=== PATIENT | male | born 1960 | race Caucasian/White ===

== ENCOUNTER 2017-03-04 07:38 | Observation (INO) | payer OTHER ==
[2017-03-04 08:21] LABS: #Basophils 0.1 thou/uL (0.0-0.2); #Eosinphils 0.4 thou/uL (0.0-0.7); #Lymphocytes 2.3 thou/uL (1.20-3.40); #Monocytes 0.5 thou/uL (0.11-0.59); #Neutrophils 3.6 thou/uL (1.40-6.50); %Basophils 1.2 % (0.0-1.0); %Eosinophils 5.7 % (0.0-10.0); %Lymphocytes 33.8 % (21.0-51.0); %Monocytes 6.9 % (0.0-10.0); Hematocrit 47.8 % (42.0-52.0); Mean Platelet Volume 7.4 fL (7.4-10.4); White Blood Cell (WBC) Count 6.8 thou/uL (4.8-10.8)
--- NOTE | 2017-03-04 08:29 | RAD ---
RADIOGRAPH CHEST 1 VIEW: HISTORY: 57-year-old male with acute chest pain. FINDINGS: There are no air space densities, pulmonary edema, pneumothorax, or cardiomegaly. The lateral costo phrenic angles are sharp. IMPRESSION: No acute cardiopulmonary findings. tripp POS: MARK
[2017-03-04] MEDS ORDERED: Nitroglycerin 0.4 MG TAB (25 Tab Bottle) ONE (08:32)
[2017-03-04 08:54] LABS: Troponin I Less than 0.010 ng/mL (< 0.028)
[2017-03-04 09:10] LABS: AST (SGOT) 27 U/L (5-34); Anion Gap 14 mmol/L (10-20); Protein, Total 7.3 g/dL (6.0-8.3)
[2017-03-04 09:11] LABS: ALT (SGPT) 35 U/L (8-55); Alkaline Phosphatase 60 U/L (40-150); BUN (Urea Nitrogen) 18 mg/dL (8.4-25.7); Bilirubin, Total 0.3 mg/dL (0.2-1.2); CK (CPK) 77 U/L (30-200); Calc. Creatinine Clearance 0 mL/min (70-130); Calcium 9.6 mg/dL (7.8-10.44); Carbon Dioxide 24 mmol/L (22-29); Chloride 99 mmol/L (98-107); Estimated GFR-MDRD 57; Globulin 3.9 g/dL (2.4-3.5); Lipase 41 U/L (8-78)
[2017-03-04] MEDS ORDERED: Ondansetron HCl/PF 4 MG/2 ML Vial ONE (09:11)
[2017-03-04] MEDS ORDERED: Mag-Al 1200 mg/1200 mg/30 ML UDCUP ONE (11:38)
[2017-03-04] MEDS ORDERED: Dextrose 5% in Water 1,000 ML IV PRN (12:32)
[2017-03-04] MEDS ORDERED: HumaLOG 300 UNITS/3 ML VIAL SC PRN ×2 (12:32)
[2017-03-04] MEDS ORDERED: Milk Of Magnesia 30 ML UDCUP PO PRN (12:32)
[2017-03-04] MEDS ORDERED: Acetaminophen 325 MG TAB PO PRN (12:32)
[2017-03-04] MEDS ORDERED: Loperamide HCl 2 MG CAP PO PRN (12:32)
[2017-03-04] MEDS ORDERED: Dextrose 50% Abboject 50 ML SYRINGE SLOW IVP PRN (12:32)
[2017-03-04] MEDS ORDERED: Zolpidem Tartrate 5 MG TAB PO PRN (12:32)
[2017-03-04] MEDS ORDERED: Diabetic Tussin 200 MG/10 ML UDCUP PO PRN (12:32)
[2017-03-04] MEDS ORDERED: Sodium Chloride 0.65% Nasal 44 ML BOT EA NARE PRN (12:32)
[2017-03-04] MEDS ORDERED: Ondansetron ODT 4 MG TAB PO PRN (12:32)
[2017-03-04] MEDS ORDERED: HYDROcodone/Acetaminophen 5/325 mg Tablet PO PRN (12:32)
[2017-03-04] MEDS ORDERED: Senokot 8.6 MG TAB PO PRN (12:32)
[2017-03-04] MEDS ORDERED: Mag-Al 1200 mg/1200 mg/30 ML UDCUP PO PRN (12:32)
[2017-03-04] MEDS ORDERED: Ondansetron HCl/PF 4 MG/2 ML Vial IVP PRN (12:32)
[2017-03-04 12:34] VITALS: BMI 38.5
[2017-03-04 13:41] LABS: Cholesterol 317 mg/dl (< 200 Desired)
[2017-03-04] MEDS ORDERED: Nitroglycerin 2% Ointment 1 INCH/1 GM Packet TOP SCH (14:00)
--- NOTE | 2017-03-04 15:23 | DIS ---
DATE OF ADMISSION: 03/04/2017 DATE OF DISCHARGE: 03/04/2017 DISCHARGE DISPOSITION: Home. PRIMARY DISCHARGE DIAGNOSIS: Chest pain, ruled out acute coronary syndrome. SECONDARY DISCHARGE DIAGNOSES: Diabetes type 2, hypertension, dyslipidemia, morbid obesity, hiatal hernia, anxiety, and depression. PRIMARY PROCEDURES/OPERATIONS: None. RADIOLOGICAL INVESTIGATION: Chest x-ray was normal. SIGNIFICANT LABORATORY DATA: Please see above. Triglyceride 418. Cholesterol 317. Lipase 41. DISCHARGE MEDICATIONS: Only new medication we added is Pepcid 20 mg p.o. b.i.d. Rest of medication s will be continued as per previous CONTRAINDICATION: None. CODE STATUS: FULL code. INPATIENT CONSULTANTS: None. ALLERGIES: No known drug allergy. DISCHARGE PLAN: Post hospital, the patient will follow with Dr. Hsieh in 1 week. HOSPITAL COURSE: The patient was admitted for chest pain. His chest pain description is mostly gas trointestinal. We did treadmill exercise stress test. We ruled out cardiac etiology with negative cardiac enzymes. The patient is completely asymptomatic. The patient does not want to stay in hosp ital today. He prefers to go home today; and that is why based on his request, we will consider dis charging him home.
[2017-03-04 15:59] VITALS: BP 116/68; TEMP 98.5
--- NOTE | 2017-03-04 17:26 | SS ---
DATE OF ADMISSION: 03/04/2017 DATE OF DISCHARGE: 03/04/2017 PRIMARY CARE PHYSICIAN: Queenie Hsieh M.D. REASON FOR ADMISSION: Chest pain HISTORY OF PRESENT ILLNESS: The patient is a 57-year-old male who has multiple medical problems inc luding hypertension, diabetes type 2, dyslipidemia, and morbid obesity who came to the [facility] for chest pain. Patient reports that chest pain started last night. He was attributing to gas, b ecause he has history of hiatal hernia. He was thinking that he ate something that was causing him chest discomfort; somehow he was able to sleep well without any problem. This morning when he woke up at that time, he was still having chest pain. He describes chest pain in substernal area, which was radiating to back on his left scapula. He was feeling dull and facial sensation about 7-8/10 in intensity. There was no specific aggravating or relieving factor. He denies any associated nausea , vomiting or diaphoresis. He denies any fever, chills or cough. He denies any relation of chest p ain with food, respiration or activity. This morning, he is supposed to go for work, but as he was having chest pain and his advised ilana dunn to go to the emergency room for evaluation and that is why he missed his work and he came to the E R by himself. In the emergency room, patient was slightly hypertensive when he arrived; otherwise, he was afebrile and saturating normal. He denies any lower extremity edema. He denies any calf tenderness. 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 At that point, he decided to leave against medical advice. At that point, I saw this p atient and be explained to him to stay in hospital for rule out acute coronary syndrome. The patien t also reports that he has family history of coronary artery disease to his father with heart attack and from heart related complications. Patient also making compromise in his home medications. He is trying to cut down his medications so of medication last longer. He recently made the appointment with Dr. Hsieh. He only saw his [facility] physician only one time. He is not from our town; he was recently moved to our town for [employer] job. Patient reports that he is doing sacrifice for his family. He is not taking his own medica tion, but he is trying to fill out prescription for his and daughter who also has diabetes and asthma respectively. Currently, when I saw this patient at that time, the patient agreed to stay in hospital only for tod ay and he was completely pain free. REVIEW OF SYSTEMS: Please see my HPI for pertinent positives and negatives. All other review of sy stems reviewed and negative except as mentioned in the HPI. Constitutional: Weight loss or gain, ability to conduct usual activities. Skin: Rash, itching. Eyes: Double vision, pain. ENT/Mouth: Nose bleeding, neck stiffness, pain, tenderness. Cardiovascular: Palpitations, dyspnea on exertion, orthopnea. Respiratory: Shortness of breath, wheezing, cough, hemoptysis, fever or night sweats. Gastrointestinal: Poor appetite, abdominal pain, heartburn, nausea, vomiting, constipation, or diar vi. Genitourinary: Urgency, frequency, dysuria, nocturia. Musculoskeletal: Pain, swelling. Neurologic/Psychiatric: Anxiety, depression. Allergy/Immunologic: Skin rash, bleeding tendency. PAST MEDICAL HISTORY: Hiatal hernia, diabetes type 2, dyslipidemia, hypertension, and morbid obesit y. PAST SURGICAL HISTORY: Vasectomy. PAST PSYCHIATRIC HISTORY: Anxiety and depression. SOCIAL HISTORY: The patient is and lives at home with family. He chews tobacco. He denies any alcohol abuse. He denies any other illicit drug abuse. He is by himself a training development manager. FAMILY HISTORY: Father had a heart attack in his 50s to 60s and from congestive heart failure. No strong family history of cancer or stroke. ALLERGIES: No known drug allergies. CURRENT HOME MEDICATIONS: Lisinopril 20 mg p.o. daily, aspirin 325 mg p.o. daily, Lipitor 40 mg p.o . at bedtime, metoprolol 25 mg p.o. daily, Glucotrol 10 mg twice daily, Janumet one tablet t wice daily. EMERGENCY ROOM COURSE: Patient is given Maalox 30 mL, aspirin 325 mg, Zofran 4 mg, morphine 4 mg, a nd nitroglycerin 0.4 mg. PHYSICAL EXAMINATION: VITAL SIGNS: On arrival, blood pressure 183/105, pulse 92, respiratory rate 16, temperature 98.1, s aturation 99% on room air, weight 113.4 kilograms. GENERAL: The patient is currently alert, awake, in no acute distress. HEAD: Normocephalic, atraumatic. EYES: Pupils round, reactive to light. Extraocular muscle intact. ENT: Oropharynx within normal limits. Moist mucous membranes, no oral lesion, no pharyngeal erythe ma. No exudate. NECK: Supple, range of motion is normal. No meningeal signs of irritation. LUNGS: Clear to auscultation without any rhonchi or rales. CARDIAC: S1, S2 regular without any murmur. ABDOMEN: Soft, bowel sounds present, nontender, nondistended. No organomegaly. No mass. No supra pubic tenderness. Mild epigastric discomfort noted. BACK EXAMINATION: Unremarkable. No CVA tenderness. EXTREMITIES: Upper extremity passive movement of all joints are normal. Lower extremity, no edema. Good peripheral pulsation. No calf tenderness. SKIN: No skin rash. HEMATOLOGICAL SYSTEM: No lymphadenopathy. PSYCHIATRIC: Normal affect. NEUROLOGIC: Nonfocal examination. The patient moves all 4 limbs. Plantar bilateral flexor. PSYCHIATRIC: Normal affect. SIGNIFICANT LABS AND IMAGINGS: EKG based on my review reveals normal sinus rhythm, LVH, no acute is chemic changes. CBC: WBC 6.8, hemoglobin 16.1, platelets 209. Lipase 41. CK 77. BMP: Sodium 13 2, potassium 4.9, chloride 99, BUN 18, creatinine 1.30, glucose 363, calcium 9.6. LFT: Protein 7.3, albumin 4.0, AST 27, ALT 35, alkaline phosphatase 60, CK-MB 1.4, troponin I less than 0.010. Chest x-ray based on my review, no acute cardiopulmonary process. ASSESSMENT AND PLAN: 1. Acute chest pain. Patient has substernal and mild epigastric discomfort. The patient has histo ry of hiatal hernia. At this point, EKG is not showing any ischemic changes. His troponin is nega tive already x2. Patient wants to go home today. I decided to keep this patient in the hospital fo r observation and we will do treadmill exercise stress test. If that is normal, then we will consid er discharging him home today. We will check lipid profile for his risk stratification. Meanwhile, we will continue with aspirin 325 mg p.o. daily, nitropatch q.8 hourly. Upon discharge, we will co ntinue aspirin 325 mg p.o. daily, Lipitor 40 mg p.o. at bedtime, metoprolol 25 mg p.o. daily, lisino pril 20 mg p.o. daily as well as we will add Pepcid 20 mg p.o. b.i.d. 2. Dyslipidemia. The patient has hypertriglyceridemia, likely due to uncontrolled diabetes. We wi ll continue Lipitor 40 mg p.o. at bedtime. The patient is advised to take over the counter fish oil and dietary instructions given. 3. Hypertension. Continue lisinopril 20 mg p.o. daily, metoprolol 25 mg p.o. daily. 4. Diabetes type 2, not well controlled. We will continue Glucotrol 10 mg twice daily, Janumet 50/ 1000 mg p.o. twice daily, diabetic diet instructed. 5. Obesity with BMI 38. Weight loss education given. Healthy lifestyle measures discussed with th e patient. 6. History of hiatal hernia. We will try Pepcid 20 mg p.o. b.i.d. 7. Deep venous thrombosis prophylaxis not needed because we are expecting discharge later on today. 8. Gastrointestinal prophylaxis, Pepcid 20 mg p.o. b.i.d. CODE STATUS: Patient is FULL CODE. The patient's is surrogate decision maker. Disposition plan based on the treadmill stress test.
[2017-03-04] MEDS ORDERED: glipiZIDE 10 MG TAB PO SCH (21:00)
[2017-03-04] MEDS ORDERED: Alogliptin Benzoate 25 MG TABLET PO SCH (21:00)
[2017-03-04] MEDS ORDERED: Famotidine 20 MG TAB PO SCH (21:00)
[2017-03-05] MEDS ORDERED: Lisinopril 10 MG TAB PO SCH (09:00)
[2017-03-05] MEDS ORDERED: FLU VACC QS2017-18 36 mo. & older 0.5 ML SYRINGE IM ONE (09:00)
[2017-03-05] MEDS ORDERED: Aspirin 325 MG TAB PO SCH (09:00)
== END 2017-03-04 16:13 | disposition home or self-care (01) ==
LOC: ERS 07:38 → 2SW 11:26
PROVIDERS: ADMIT Internal Medicine; ATTEND Internal Medicine
DX: R07.2 Precordial pain (principal); I10 Essential (primary) hypertension; E66.01 Morbid (severe) obesity due to excess calories; F32.9 Major depressive disorder, single episode, unspecified; E78.1 Pure hyperglyceridemia; E11.65 Type 2 diabetes mellitus with hyperglycemia; F41.9 Anxiety disorder, unspecified; F17.220 Nicotine dependence, chewing tobacco, uncomplicated; Z68.38 Body mass index [BMI] 38.0-38.9, adult; Z79.84 Long term (current) use of oral hypoglycemic drugs; Z79.82 Long term (current) use of aspirin; Z79.899 Other long term (current) drug therapy; Z98.52 Vasectomy status; Z87.19 Personal history of other diseases of the digestive system; Z82.49 Family history of ischemic heart disease and other diseases of the circulatory system
CPT/HCPCS: 36415; 71010; 80053; 80061; 82550; 82553; 83690; 84484; 85025; 93005; 93017; 96374; 96375; G0378; J2270; J2405

== ENCOUNTER 2022-01-22 14:36 | Outpatient (CLI) | payer BC | END 2022-01-22 14:37 | disposition home or self-care (01) | LOC: ULT 14:36 | PROVIDERS: ATTEND Internal Medicine Nephrology | DX: N18.30 Chronic kidney disease, stage 3 unspecified (principal); R93.41 Abnormal radiologic findings on diagnostic imaging of renal pelvis, ureter, or bladder | CPT/HCPCS: 76770 ==

== ENCOUNTER 2022-01-24 10:56 | Inpatient (IN) | payer BC ==
[2022-01-24 11:42] LABS: #Basophils 0.1 thou/uL (0.0-0.2); #Eosinphils 0.1 thou/uL (0.0-0.7); #Lymphocytes 1.2 thou/uL (1.20-3.40); #Monocytes 0.8 thou/uL (0.11-0.59); #Neutrophils 10.8 thou/uL (1.40-6.50); %Basophils 0.5 % (0.0-1.0); %Eosinophils 0.7 % (0.0-10.0); %Lymphocytes 8.9 % (21.0-51.0); %Monocytes 6.3 % (0.0-10.0); %Neutrophils 83.6 % (42.0-75.0); Hemoglobin 16.6 g/dL (14.0-18.0); Mean Corpuscular HGB CONC 32.9 g/dL (32.0-36.0); Mean Corpuscular Volume 91.2 fL (78.0-98.0); Mean Platelet Volume 8.3 fL (7.4-10.4); Platelet Count 203 thou/uL (130-400); RBC Distribution Width 11.8 % (11.5-14.5); Red Blood Cell (RBC) Count 5.54 mill/uL (4.70-6.10); White Blood Cell (WBC) Count 12.9 thou/uL (4.8-10.8)
[2022-01-24 11:57] LABS: ALT (SGPT) 12 U/L (8-55); AST (SGOT) 10 U/L (5-34); Albumin 4.1 g/dL (3.5-5.0); Alkaline Phosphatase 110 U/L (40-110); Anion Gap 30 mmol/L (10-20); BUN (Urea Nitrogen) 30 mg/dL (8.4-25.7); Bilirubin, Total 0.3 mg/dL (0.2-1.2); CK (CPK) 45 U/L (30-200); Calc. Creatinine Clearance 0 mL/min (70-130); Calcium 9.6 mg/dL (7.8-10.44); Carbon Dioxide 10 mmol/L (22-29); Chloride 94 mmol/L (98-107); Estimated GFR 29; Glucose 507 mg/dL (70-105); Potassium 5.3 mmol/L (3.5-5.1); Protein, Total 8.1 g/dL (6.0-8.3); Sodium 129 mmol/L (136-145)
[2022-01-24] MEDS ORDERED: Acetaminophen 500 MG TAB ONE (12:28)
[2022-01-24] MEDS ORDERED: INSULIN REGULAR IN 0.9 % NACL 100 UNIT/100 ML BAG ONE (12:32)
[2022-01-24 13:09] LABS: Analyzer IN Cardio ER; Base Excess -17.4 mEq/L (-2.0 to +3.0); Calcium, Ionized (venous) 1.23 mmol/L (1.16-1.32); Chloride (VBG) 97 mmol/L (98-106); Hemoglobin (Hb) 16.6 g/dL (13.1-17.2); Potassium (VBG) 5.79 mmol/L (3.70-5.30); Sodium 131.3 mmol/L (133-146)
[2022-01-24 13:15] LABS: Actual Bicarbonate (HCO3v) 10 mEq/L (22-28); pH (venous) 7.15 (7.32-7.43)
[2022-01-24] MEDS ORDERED: Dextrose 5 %-0.45 % NaCl 1,000 ML IV PRN (13:25)
[2022-01-24] MEDS ORDERED: NS 0.9% w/ 20 MEQ KCL 1,000 ML IV PRN (13:25)
[2022-01-24] MEDS ORDERED: Sodium Chloride 0.9% 1,000 ML IV PRN ×4 (13:25)
[2022-01-24] MEDS ORDERED: Sodium Bicarb 50 MEQ/50 ML VIAL ONE (13:25)
[2022-01-24] MEDS ORDERED: Electrolyte Replacement Protocol 1 EACH IVPB PRN (13:25)
[2022-01-24] MEDS ORDERED: Sodium Bicarbonate 2.5 MEQ/5 ML VIAL ONE (13:25)
[2022-01-24] MEDS ORDERED: HUMULIN R 100 UNITS in Sodium Chloride 0.9% 100 ML IVPB SCH (13:30)
[2022-01-24 14:25] LABS: Anion Gap 28 mmol/L (10-20); BUN (Urea Nitrogen) 29 mg/dL (8.4-25.7); Calc. Creatinine Clearance 0 mL/min (70-130); Calcium 9.1 mg/dL (7.8-10.44); Chloride 99 mmol/L (98-107); Estimated GFR 36; Glucose 407 mg/dL (70-105); Potassium 5.6 mmol/L (3.5-5.1); Sodium 129 mmol/L (136-145)
[2022-01-24 14:49] LABS: Carbon Dioxide 8 mmol/L (22-29)
[2022-01-24 16:16] VITALS: BMI 32.3
[2022-01-24 18:35] LABS: Anion Gap 21 mmol/L (10-20); BUN (Urea Nitrogen) 25 mg/dL (8.4-25.7); Calc. Creatinine Clearance 69 mL/min (70-130); Calcium 8.6 mg/dL (7.8-10.44); Carbon Dioxide 12 mmol/L (22-29); Chloride 102 mmol/L (98-107); Estimated GFR 43; Glucose 232 mg/dL (70-105); Potassium 4.1 mmol/L (3.5-5.1); Sodium 131 mmol/L (136-145)
[2022-01-24] MEDS ORDERED: Piperacillin/Tazobactam 3.375 GM in Sodium Chloride 0.9% 100 ML IVPB SCH (20:00)
[2022-01-24] MEDS: NS 0.9% w/ 20 MEQ KCL 1,000 ML IV PRN ×2 (20:29→22:40)
[2022-01-24] MEDS: Acetaminophen 500 MG TAB PO PRN (20:31)
[2022-01-24] MEDS: Atorvastatin Calcium 40 MG TAB PO SCH (20:32)
[2022-01-24] MEDS: Famotidine 20 MG TAB PO SCH (20:32)
[2022-01-24 21:54] LABS: Anion Gap 19 mmol/L (10-20); BUN (Urea Nitrogen) 21 mg/dL (8.4-25.7); Calc. Creatinine Clearance 82 mL/min (70-130); Calcium 7.6 mg/dL (7.8-10.44); Carbon Dioxide 11 mmol/L (22-29); Chloride 107 mmol/L (98-107); Estimated GFR 53; Glucose 216 mg/dL (70-105); Potassium 4.2 mmol/L (3.5-5.1); Sodium 133 mmol/L (136-145)
[2022-01-24] MEDS: Heparin 5,000 UNITS/ML VIAL SC SCH (22:47)
[2022-01-24] MEDS ORDERED: Ibuprofen 200 MG TAB PO SCH (23:45)
[2022-01-25] MEDS: Piperacillin/Tazobactam 3.375 GM in Sodium Chloride 0.9% 100 ML IVPB SCH ×2 (00:04→07:48)
[2022-01-25 04:08] LABS: Anion Gap 15 mmol/L (10-20); BUN (Urea Nitrogen) 16 mg/dL (8.4-25.7); Calc. Creatinine Clearance 91 mL/min (70-130); Carbon Dioxide 14 mmol/L (23-31); Chloride 108 mmol/L (98-107); Estimated GFR 60; Glucose 134 mg/dL (80-115); Magnesium 1.9 mg/dL (1.6-2.6); Potassium 4.2 mmol/L (3.5-5.1); Sodium 133 mmol/L (136-145)
[2022-01-25 04:18] LABS: Phosphorus 1.5 mg/dL (2.3-4.7)
[2022-01-25] MEDS ORDERED: Magnesium 2 GM/50 ML(in water) 2 GM in Premix Bag 1 BAG IVPB SCH (04:45)
[2022-01-25] MEDS: PHOS-NAK 1 PKT PACK PO SCH ×4 (05:47→17:24)
[2022-01-25] MEDS: D5 1/2 NS w/20 mEq KCL 1,000 ML IV PRN ×2 (05:47→09:43)
[2022-01-25] MEDS: Heparin 5,000 UNITS/ML VIAL SC SCH ×3 (05:49→20:56)
[2022-01-25] MEDS: Acetaminophen 500 MG TAB PO PRN ×3 (07:47→21:01)
[2022-01-25] MEDS: Lisinopril 20 MG TAB PO SCH (09:37)
[2022-01-25] MEDS: Aspirin 325 MG TAB PO SCH (09:37)
[2022-01-25] MEDS: Metoprolol Tartrate 25 MG TAB PO SCH (09:37)
[2022-01-25] MEDS: Famotidine 20 MG TAB PO SCH ×2 (09:38→20:40)
[2022-01-25] MEDS ORDERED: Insulin Glargine 30 UNITS/0.3 ML VIAL SC SCH ×2 (10:15→10:30)
[2022-01-25] MEDS ORDERED: Dextrose 5% in Water 1,000 ML IV PRN (10:16)
[2022-01-25] MEDS ORDERED: Dextrose 50% Abboject 50 ML SYRINGE SLOW IVP PRN (10:16)
[2022-01-25] MEDS ORDERED: Acetaminophen 500 MG TAB PO SCH (11:00)
[2022-01-25] MEDS: Insulin Glargine 30 UNITS/0.3 ML VIAL SC SCH (11:26)
[2022-01-25] MEDS ORDERED: Polyethylene Glycol 3350 17 GM Packet PO SCH (15:45)
[2022-01-25] MEDS ORDERED: Senokot S 8.6-50 MG TAB PO SCH ×2 (15:45→21:00)
[2022-01-25] MEDS: Benzonatate 100 MG CAP PO PRN (16:17)
[2022-01-25] MEDS: HumaLOG 300 UNITS/3 ML VIAL SC PRN (17:24)
[2022-01-25] MEDS: Senokot S 8.6-50 MG TAB PO SCH (20:40)
[2022-01-25] MEDS: Atorvastatin Calcium 40 MG TAB PO SCH (20:40)
[2022-01-26 04:13] LABS: Anion Gap 13 mmol/L (10-20); BUN (Urea Nitrogen) 11 mg/dL (8.4-25.7); Calc. Creatinine Clearance 108 mL/min (70-130); Calcium 8.2 mg/dL (7.8-10.44); Carbon Dioxide 18 mmol/L (23-31); Chloride 109 mmol/L (98-107); Estimated GFR 74; Glucose 218 mg/dL (80-115); Potassium 3.8 mmol/L (3.5-5.1); Sodium 136 mmol/L (136-145)
[2022-01-26] MEDS: Heparin 5,000 UNITS/ML VIAL SC SCH ×3 (06:24→21:30)
[2022-01-26] MEDS: HumaLOG 300 UNITS/3 ML VIAL SC PRN ×3 (06:25→21:29)
[2022-01-26] MEDS: Senokot S 8.6-50 MG TAB PO SCH ×2 (07:26→21:28)
[2022-01-26] MEDS: Aspirin 325 MG TAB PO SCH (07:26)
[2022-01-26] MEDS: Famotidine 20 MG TAB PO SCH ×2 (07:26→21:28)
[2022-01-26] MEDS: Lisinopril 20 MG TAB PO SCH (07:26)
[2022-01-26] MEDS: Metoprolol Tartrate 25 MG TAB PO SCH (07:26)
[2022-01-26] MEDS: Polyethylene Glycol 3350 17 GM Packet PO SCH (07:27)
[2022-01-26] MEDS ORDERED: Bisacodyl 10 MG SUPP PR SCH (14:30)
[2022-01-26] MEDS ORDERED: Magnesium Citrate 300 ML BOT PO SCH (14:30)
[2022-01-26] MEDS ORDERED: Lactulose 10 GM/15 ML Oral Solution PER TUBE SCH (14:45)
[2022-01-26] MEDS ORDERED: Mineral Oil ENEMA PR SCH (16:45)
[2022-01-26] MEDS: Benzonatate 100 MG CAP PO PRN (18:43)
[2022-01-26] MEDS: Acetaminophen 500 MG TAB PO PRN (18:46)
[2022-01-26] MEDS ORDERED: Acetaminophen 500 MG TAB PO PRN (19:07)
[2022-01-26] MEDS ORDERED: rOPINIRole HCl 1 MG TAB PO SCH (21:00)
[2022-01-26] MEDS ORDERED: Insulin Glargine 30 UNITS/0.3 ML VIAL SC SCH (21:00)
[2022-01-26] MEDS: Atorvastatin Calcium 40 MG TAB PO SCH (21:28)
[2022-01-27] MEDS: HumaLOG 300 UNITS/3 ML VIAL SC PRN ×2 (06:32→12:12)
[2022-01-27] MEDS: Heparin 5,000 UNITS/ML VIAL SC SCH (06:32)
[2022-01-27 07:17] LABS: Anion Gap 15 mmol/L (10-20); BUN (Urea Nitrogen) 7 mg/dL (8.4-25.7); Calc. Creatinine Clearance 121 mL/min (70-130); Calcium 8.9 mg/dL (7.8-10.44); Carbon Dioxide 20 mmol/L (23-31); Chloride 105 mmol/L (98-107); Estimated GFR 85; Glucose 248 mg/dL (80-115); Potassium 4.3 mmol/L (3.5-5.1); Sodium 136 mmol/L (136-145)
[2022-01-27] MEDS ORDERED: Citalopram 20 MG TAB PO SCH (09:00)
[2022-01-27] MEDS: Metoprolol Tartrate 25 MG TAB PO SCH (09:41)
[2022-01-27] MEDS: Insulin Glargine 30 UNITS/0.3 ML VIAL SC SCH (09:41)
[2022-01-27] MEDS: Polyethylene Glycol 3350 17 GM Packet PO SCH (09:41)
[2022-01-27] MEDS: Senokot S 8.6-50 MG TAB PO SCH (09:44)
[2022-01-27] MEDS: Aspirin 325 MG TAB PO SCH (09:44)
[2022-01-27] MEDS: Famotidine 20 MG TAB PO SCH (09:44)
[2022-01-27] MEDS: Lisinopril 20 MG TAB PO SCH (09:44)
[2022-01-27 15:45] VITALS: BP 155/78; TEMP 98.8
== END 2022-01-27 12:26 | disposition home or self-care (01) | DRG 637 ==
LOC: ERS 10:56 → IMCU/EMU 13:28 → T4-B 01-26 17:21
PROVIDERS: ADMIT Emergency Medicine; ATTEND Family Medicine
DX: E11.10 Type 2 diabetes mellitus with ketoacidosis without coma (principal); U07.1 COVID-19; E87.1 Hypo-osmolality and hyponatremia; N17.9 Acute kidney failure, unspecified; E11.22 Type 2 diabetes mellitus with diabetic chronic kidney disease; E78.00 Pure hypercholesterolemia, unspecified; E87.5 Hyperkalemia; K59.01 Slow transit constipation; F17.220 Nicotine dependence, chewing tobacco, uncomplicated; I12.9 Hypertensive chronic kidney disease with stage 1 through stage 4 chronic kidney disease, or unspecified chronic kidney disease; N18.30 Chronic kidney disease, stage 3 unspecified; F41.9 Anxiety disorder, unspecified; F32.A Depression, unspecified; Z98.52 Vasectomy status; Z79.82 Long term (current) use of aspirin; Z79.899 Other long term (current) drug therapy; Z79.4 Long term (current) use of insulin; Z79.84 Long term (current) use of oral hypoglycemic drugs; Z91.14 Patient's other noncompliance with medication regimen
CPT/HCPCS: 36415; 36416; 71045; 76770; 80048; 80053; 82010; 82550; 82805; 83690; 83735; 83880; 83930; 84100; 84484; 85025; 87086; 93005; 94760; 96374; 96375; J1644; J1815; J2543; J3475; J3480; J3490; U0003; U0005

== ENCOUNTER 2022-02-12 00:28 | Inpatient (IN) | payer BC ==
[2022-02-12 01:07] LABS: #Lymphocytes 1.1 thou/uL (1.20-3.40); #Monocytes 0.8 thou/uL (0.11-0.59); %Basophils 0.4 % (0.0-1.0); %Eosinophils 0.4 % (0.0-10.0); %Lymphocytes 8.3 % (21.0-51.0); %Monocytes 5.8 % (0.0-10.0); %Neutrophils 85.1 % (42.0-75.0); Hemoglobin 15.6 g/dL (14.0-18.0); Mean Corpuscular HGB CONC 32.4 g/dL (32.0-36.0); Mean Corpuscular Hemoglobin 30.3 pg (27.0-31.0); Mean Corpuscular Volume 93.7 fL (78.0-98.0); Mean Platelet Volume 7.4 fL (7.4-10.4); Platelet Count 312 thou/uL (130-400); RBC Distribution Width 12.8 % (11.5-14.5); Red Blood Cell (RBC) Count 5.15 mill/uL (4.70-6.10)
[2022-02-12 01:20] LABS: Analyzer IN Cardio ER; Base Excess -23.6 mEq/L (-2.0 to +3.0); Calcium, Ionized (venous) 1.41 mmol/L (1.16-1.32); Chloride (VBG) 101 mmol/L (98-106); Hemoglobin (Hb) 17.6 g/dL (13.1-17.2); Potassium (VBG) 6.27 mmol/L (3.70-5.30); Sodium 137.2 mmol/L (133-146)
[2022-02-12 01:28] LABS: Actual Bicarbonate (HCO3v) 5 mEq/L (22-28); pH (venous) 7.04 (7.32-7.43)
[2022-02-12 01:35] LABS: ALT (SGPT) 15 U/L (8-55); AST (SGOT) 12 U/L (5-34); Albumin 4.4 g/dL (3.4-4.8); Alkaline Phosphatase 112 U/L (40-110); BUN (Urea Nitrogen) 38 mg/dL (8.4-25.7); Bilirubin, Total 0.3 mg/dL (0.2-1.2); Calc. Creatinine Clearance 0 mL/min (70-130); Calcium 11.2 mg/dL (7.8-10.44); Chloride 99 mmol/L (98-107); Estimated GFR 26; Globulin 4.4 g/dL (2.4-3.5); Potassium 6.1 mmol/L (3.5-5.1); Protein, Total 8.8 g/dL (5.8-8.1); Sodium 131 mmol/L (136-145)
[2022-02-12 01:39] LABS: Carbon Dioxide Less than 8 mmol/L (23-31); Glucose 607 mg/dL (80-115)
[2022-02-12] MEDS ORDERED: INSULIN REGULAR IN 0.9 % NACL 100 UNIT/100 ML BAG ONE (02:06)
[2022-02-12] MEDS ORDERED: Insulin Regular 300 UNITS/3 ML VIAL ONE (02:13)
[2022-02-12 02:53] LABS: Calcium 10.5 mg/dL (7.8-10.44); Magnesium 2.5 mg/dL (1.6-2.6); Phosphorus 5.5 mg/dL (2.3-4.7)
[2022-02-12] MEDS ORDERED: HUMULIN R 100 UNITS in Sodium Chloride 0.9% 100 ML IVPB SCH (03:00)
[2022-02-12] MEDS ORDERED: NS 0.9% w/ 20 MEQ KCL 1,000 ML/1,000 ML BAG IV PRN ×2 (03:00)
[2022-02-12] MEDS ORDERED: Dextrose 50% Abboject 50 ML SYRINGE SLOW IVP PRN (03:00)
[2022-02-12] MEDS ORDERED: Sodium Chloride 0.9% 1,000 ML IV PRN ×4 (03:00)
[2022-02-12] MEDS ORDERED: ADD ELECTROLYTE REPLACEMENT SET TO PROFILE FS SCH (03:00)
[2022-02-12] MEDS ORDERED: Dextrose 5 %-0.45 % NaCl 1,000 ML IV PRN (03:00)
[2022-02-12] MEDS ORDERED: Dextrose 5% in Water 1,000 ML IV PRN ×2 (03:00→16:46)
[2022-02-12 03:02] LABS: Glucose 615 mg/dL (80-115)
[2022-02-12] MEDS ORDERED: Enoxaparin Sodium 80 MG/0.8 ML SYRINGE ONE (03:18)
[2022-02-12] MEDS ORDERED: Enoxaparin Sodium 30 MG/0.3 ML SYRINGE ONE (03:18)
[2022-02-12] MEDS ORDERED: Ondansetron PF 4 MG/2 ML Vial IVP PRN (04:29)
[2022-02-12] MEDS ORDERED: Electrolyte Replacement Protocol 1 EACH IVPB ONE (04:29)
[2022-02-12 04:31] LABS: Glucose 514 mg/dL (80-115)
[2022-02-12 04:39] LABS: Critical Call Chem Troponin I RESULT DECREASING; Troponin I 0.816 ng/mL (< 0.028)
[2022-02-12 05:48] LABS: SARS-CoV-2 NAA Rapid Test DETECTED (NotDetected)
[2022-02-12 07:26] LABS: Hemoglobin A1c Greater than 14.0 % (4.0-6.0)
[2022-02-12 07:40] LABS: Anion Gap 25 mmol/L (10-20); BUN (Urea Nitrogen) 43 mg/dL (8.4-25.7); Calc. Creatinine Clearance 49 mL/min (70-130); Calcium 10.1 mg/dL (7.8-10.44); Chloride 107 mmol/L (98-107); Estimated GFR 30; Glucose 284 mg/dL (80-115); Potassium 4.9 mmol/L (3.5-5.1); Sodium 135 mmol/L (136-145)
[2022-02-12 07:48] LABS: Carbon Dioxide 8 mmol/L (23-31); Troponin I 1.698 ng/mL (< 0.028)
[2022-02-12] MEDS ORDERED: Metoprolol Tartrate 25 MG TAB PO SCH (09:00)
[2022-02-12] MEDS: D5 1/2 NS w/20 mEq KCL 1,000 ML IV PRN ×2 (09:42→13:49)
[2022-02-12 09:58] VITALS: BMI 31.6
[2022-02-12] MEDS: Aspirin 325 MG TAB PO SCH (10:34)
[2022-02-12] MEDS: Acetaminophen 325 MG TAB PO PRN (10:34)
[2022-02-12] MEDS: Famotidine 20 MG TAB PO SCH ×2 (10:34→20:27)
[2022-02-12] MEDS: Citalopram 20 MG TAB PO SCH (10:34)
[2022-02-12 12:38] LABS: Anion Gap 18 mmol/L (10-20); BUN (Urea Nitrogen) 42 mg/dL (8.4-25.7); Calc. Creatinine Clearance 56 mL/min (70-130); Calcium 9.8 mg/dL (7.8-10.44); Carbon Dioxide 12 mmol/L (23-31); Chloride 108 mmol/L (98-107); Estimated GFR 34; Glucose 186 mg/dL (80-115); Potassium 4.8 mmol/L (3.5-5.1); Sodium 133 mmol/L (136-145)
[2022-02-12] MEDS ORDERED: Sodium Bicarb 50 MEQ/50 ML VIAL IVP SCH ×2 (13:45→17:00)
[2022-02-12 16:35] LABS: Anion Gap 15 mmol/L (10-20); BUN (Urea Nitrogen) 38 mg/dL (8.4-25.7); Calc. Creatinine Clearance 65 mL/min (70-130); Calcium 9.5 mg/dL (7.8-10.44); Carbon Dioxide 12 mmol/L (23-31); Chloride 111 mmol/L (98-107); Estimated GFR 41; Glucose 151 mg/dL (80-115); Potassium 4.8 mmol/L (3.5-5.1); Sodium 133 mmol/L (136-145)
[2022-02-12] MEDS ORDERED: Insulin Glargine 30 UNITS/0.3 ML VIAL SC SCH (17:00)
[2022-02-12] MEDS: Sodium Chloride 0.9% 1,000 ML IV SCH (17:34)
[2022-02-12 20:23] LABS: Anion Gap 14 mmol/L (10-20); BUN (Urea Nitrogen) 32 mg/dL (8.4-25.7); Calc. Creatinine Clearance 73 mL/min (70-130); Calcium 9.3 mg/dL (7.8-10.44); Carbon Dioxide 15 mmol/L (23-31); Chloride 109 mmol/L (98-107); Estimated GFR 48; Glucose 156 mg/dL (80-115); Potassium 4.4 mmol/L (3.5-5.1); Sodium 134 mmol/L (136-145)
[2022-02-12] MEDS: rOPINIRole HCl 1 MG TAB PO SCH (20:27)
[2022-02-12] MEDS: Atorvastatin Calcium 40 MG TAB PO SCH (20:27)
[2022-02-12 20:32] LABS: Troponin I 4.469 ng/mL (< 0.028)
[2022-02-12] MEDS: Enoxaparin Sodium 120 MG/0.8 ML SYRINGE SC SCH (21:35)
[2022-02-13] MEDS: Sodium Chloride 0.9% 1,000 ML IV SCH ×2 (00:13→10:24)
[2022-02-13] MEDS: Acetaminophen 325 MG TAB PO PRN (02:45)
[2022-02-13 05:32] LABS: #Eosinphils 0.1 thou/uL (0.0-0.7); #Lymphocytes 1.6 thou/uL (1.20-3.40); #Monocytes 0.8 thou/uL (0.11-0.59); #Neutrophils 5.7 thou/uL (1.40-6.50); %Basophils 0.2 % (0.0-1.0); %Eosinophils 0.7 % (0.0-10.0); %Lymphocytes 19.4 % (21.0-51.0); %Monocytes 10.2 % (0.0-10.0); %Neutrophils 69.4 % (42.0-75.0); Hemoglobin 13.6 g/dL (14.0-18.0); Mean Corpuscular HGB CONC 32.9 g/dL (32.0-36.0); Mean Corpuscular Hemoglobin 30.3 pg (27.0-31.0); Mean Corpuscular Volume 92.1 fL (78.0-98.0); Mean Platelet Volume 7.3 fL (7.4-10.4); Platelet Count 233 thou/uL (130-400); RBC Distribution Width 12.7 % (11.5-14.5); Red Blood Cell (RBC) Count 4.48 mill/uL (4.70-6.10); White Blood Cell (WBC) Count 8.2 thou/uL (4.8-10.8)
[2022-02-13] MEDS: HumaLOG 300 UNITS/3 ML VIAL SC PRN ×3 (05:47→20:18)
[2022-02-13 05:56] LABS: Anion Gap 15 mmol/L (10-20); BUN (Urea Nitrogen) 22 mg/dL (8.4-25.7); Calc. Creatinine Clearance 82 mL/min (70-130); Calcium 9.4 mg/dL (7.8-10.44); Carbon Dioxide 16 mmol/L (23-31); Chloride 107 mmol/L (98-107); Estimated GFR 54; Glucose 234 mg/dL (80-115); Potassium 4.4 mmol/L (3.5-5.1); Sodium 134 mmol/L (136-145)
[2022-02-13 05:59] LABS: Magnesium 1.9 mg/dL (1.6-2.6); Phosphorus 1.7 mg/dL (2.3-4.7)
[2022-02-13] MEDS ORDERED: PHOS-NAK 1 PKT PACK PO SCH (06:30)
[2022-02-13] MEDS: Aspirin 325 MG TAB PO SCH (08:48)
[2022-02-13] MEDS: Citalopram 20 MG TAB PO SCH (08:48)
[2022-02-13] MEDS: Famotidine 20 MG TAB PO SCH ×2 (08:48→20:18)
[2022-02-13] MEDS: Enoxaparin Sodium 120 MG/0.8 ML SYRINGE SC SCH ×2 (08:51→20:17)
[2022-02-13] MEDS ORDERED: Potassium Phosphate 30 MMOL in Sodium Chloride 0.9% 250 ML 250 ML IVPB SCH (09:30)
[2022-02-13] MEDS ORDERED: Amlodipine 10 MG TAB PO SCH ×2 (10:56→11:30)
[2022-02-13] MEDS: Insulin Glargine 30 UNITS/0.3 ML VIAL SC SCH (20:17)
[2022-02-13] MEDS: Atorvastatin Calcium 40 MG TAB PO SCH (20:18)
[2022-02-13] MEDS: rOPINIRole HCl 1 MG TAB PO SCH (20:18)
[2022-02-13] MEDS ORDERED: HYDROcodone/Acetaminophen 7.5/325 mg Tablet PO SCH (21:30)
[2022-02-14 03:49] LABS: #Eosinphils 0.2 thou/uL (0.0-0.7); #Lymphocytes 2.7 thou/uL (1.20-3.40); #Monocytes 0.8 thou/uL (0.11-0.59); #Neutrophils 3.7 thou/uL (1.40-6.50); %Basophils 0.5 % (0.0-1.0); %Eosinophils 2.1 % (0.0-10.0); %Lymphocytes 36.7 % (21.0-51.0); %Monocytes 10.9 % (0.0-10.0); %Neutrophils 49.8 % (42.0-75.0); Hemoglobin 13.1 g/dL (14.0-18.0); Mean Corpuscular HGB CONC 33.8 g/dL (32.0-36.0); Mean Corpuscular Hemoglobin 30.5 pg (27.0-31.0); Mean Corpuscular Volume 90.4 fL (78.0-98.0); Mean Platelet Volume 7.4 fL (7.4-10.4); Platelet Count 209 thou/uL (130-400); RBC Distribution Width 12.7 % (11.5-14.5); Red Blood Cell (RBC) Count 4.29 mill/uL (4.70-6.10); White Blood Cell (WBC) Count 7.4 thou/uL (4.8-10.8)
[2022-02-14] MEDS: Acetaminophen 325 MG TAB PO PRN ×3 (03:59→22:31)
[2022-02-14 04:20] LABS: Anion Gap 10 mmol/L (10-20); BUN (Urea Nitrogen) 12 mg/dL (8.4-25.7); Calc. Creatinine Clearance 108 mL/min (70-130); Carbon Dioxide 23 mmol/L (23-31); Chloride 106 mmol/L (98-107); Estimated GFR 76; Glucose 83 mg/dL (80-115); Potassium 3.6 mmol/L (3.5-5.1); Sodium 135 mmol/L (136-145)
[2022-02-14] MEDS ORDERED: Regadenoson 0.4 MG/5 ML SYRINGE ONE (08:43)
[2022-02-14] MEDS: Insulin Glargine 30 UNITS/0.3 ML VIAL SC SCH ×2 (09:00→22:26)
[2022-02-14] MEDS ORDERED: HYDROcodone/Acetaminophen 7.5/325 mg Tablet PO SCH ×2 (09:15→22:30)
[2022-02-14] MEDS: Enoxaparin Sodium 120 MG/0.8 ML SYRINGE SC SCH ×2 (09:19→22:27)
[2022-02-14] MEDS: Amlodipine 10 MG TAB PO SCH (09:59)
[2022-02-14] MEDS: Aspirin 325 MG TAB PO SCH (09:59)
[2022-02-14] MEDS: Citalopram 20 MG TAB PO SCH (09:59)
[2022-02-14] MEDS: Famotidine 20 MG TAB PO SCH ×2 (10:52→22:27)
[2022-02-14] MEDS: rOPINIRole HCl 1 MG TAB PO SCH (22:27)
[2022-02-14] MEDS: Atorvastatin Calcium 40 MG TAB PO SCH (22:27)
[2022-02-15 03:37] LABS: #Eosinphils 0.2 thou/uL (0.0-0.7); #Lymphocytes 2.4 thou/uL (1.20-3.40); #Monocytes 0.6 thou/uL (0.11-0.59); #Neutrophils 4.1 thou/uL (1.40-6.50); %Basophils 0.5 % (0.0-1.0); %Eosinophils 2.4 % (0.0-10.0); %Lymphocytes 32.7 % (21.0-51.0); %Neutrophils 56.4 % (42.0-75.0); Hemoglobin 11.6 g/dL (14.0-18.0); Mean Corpuscular HGB CONC 33.6 g/dL (32.0-36.0); Mean Corpuscular Hemoglobin 30.5 pg (27.0-31.0); Mean Corpuscular Volume 90.6 fL (78.0-98.0); Mean Platelet Volume 7.2 fL (7.4-10.4); Platelet Count 182 thou/uL (130-400); RBC Distribution Width 12.4 % (11.5-14.5); Red Blood Cell (RBC) Count 3.82 mill/uL (4.70-6.10); White Blood Cell (WBC) Count 7.2 thou/uL (4.8-10.8)
[2022-02-15 04:03] LABS: Anion Gap 12 mmol/L (10-20); BUN (Urea Nitrogen) 11 mg/dL (8.4-25.7); Calc. Creatinine Clearance 134 mL/min (70-130); Calcium 8.5 mg/dL (7.8-10.44); Carbon Dioxide 22 mmol/L (23-31); Chloride 102 mmol/L (98-107); Estimated GFR 98; Glucose 279 mg/dL (80-115); Potassium 3.8 mmol/L (3.5-5.1); Sodium 132 mmol/L (136-145)
[2022-02-15 04:05] LABS: Phosphorus 2.2 mg/dL (2.3-4.7)
[2022-02-15] MEDS ORDERED: Sodium Chloride 0.9% 1,000 ML IV SCH ×2 (08:15→14:31)
[2022-02-15] MEDS: Citalopram 20 MG TAB PO SCH (08:24)
[2022-02-15] MEDS: Aspirin 325 MG TAB PO SCH (08:24)
[2022-02-15] MEDS: Famotidine 20 MG TAB PO SCH ×2 (08:24→20:47)
[2022-02-15] MEDS: Acetaminophen 325 MG TAB PO PRN (08:24)
[2022-02-15] MEDS ORDERED: SUMAtriptan Succinate 6 MG/0.5 ML VIAL SC SCH (08:30)
[2022-02-15] MEDS ORDERED: Metoclopramide HCl 10 MG/2 ML VIAL IVP SCH (08:30)
[2022-02-15] MEDS: Amlodipine 10 MG TAB PO SCH (08:40)
[2022-02-15] MEDS ORDERED: Sodium Phosphate 30 MMOL in Sodium Chloride 0.9% 250 ML 250 ML IVPB SCH (09:15)
[2022-02-15] MEDS ORDERED: Iopamidol 370 76% 100 ML VIAL ONE (10:38)
[2022-02-15] MEDS ORDERED: Iopamidol 370 76% 50 ML VIAL FS ONE (10:38)
[2022-02-15] MEDS: Insulin Glargine 30 UNITS/0.3 ML VIAL SC SCH ×2 (10:45→21:10)
[2022-02-15] MEDS ORDERED: Lidocaine 1% (PF) 30 ML VIAL ONE ×2 (12:40→13:14)
[2022-02-15] MEDS ORDERED: Heparin 10,000 UNITS/ 10 ML VIAL ONE (12:55)
[2022-02-15] MEDS ORDERED: Fentanyl 100 MCG/2 ML VIAL ONE (13:36)
[2022-02-15] MEDS ORDERED: Midazolam HCl 2 mg/2 ml Vial ONE (13:37)
[2022-02-15] MEDS ORDERED: Protamine Sulfate 50 MG/5 ML VIAL ONE (14:09)
[2022-02-15] MEDS ORDERED: Nitroglycerin 0.4 MG TAB (25 Tab Bottle) SL PRN (14:30)
[2022-02-15] MEDS ORDERED: Sodium Chloride 0.9% 200 ML IV PRN (14:30)
[2022-02-15] MEDS ORDERED: Acetaminophen/Codeine 30-300mg Tablet PO PRN (14:30)
[2022-02-15] MEDS ORDERED: Communication Order-Pharmacy FS SCH (16:00)
[2022-02-15] MEDS: Acetaminophen/Codeine 30-300mg Tablet PO PRN ×2 (17:24→21:14)
[2022-02-15] MEDS: HumaLOG 300 UNITS/3 ML VIAL SC PRN (17:29)
[2022-02-15] MEDS: Atorvastatin Calcium 40 MG TAB PO SCH (20:47)
[2022-02-15] MEDS: rOPINIRole HCl 1 MG TAB PO SCH (20:47)
[2022-02-16 04:43] LABS: Anion Gap 10 mmol/L (10-20); BUN (Urea Nitrogen) 8 mg/dL (8.4-25.7); Calc. Creatinine Clearance 153 mL/min (70-130); Calcium 8.6 mg/dL (7.8-10.44); Carbon Dioxide 26 mmol/L (23-31); Cardiac Risk 3.7 (Less than 4.5); Chloride 103 mmol/L (98-107); Cholesterol 154 mg/dl (< 200 Desired); Estimated GFR 101; Glucose 187 mg/dL (80-115); HDL Cholesterol 42 mg/dL (>60 Neg Risk); LDL Cholesterol, Calculated 87 mg/dL; Potassium 3.5 mmol/L (3.5-5.1); Sodium 135 mmol/L (136-145); Triglycerides 124 mg/dL (Less than 150)
[2022-02-16] MEDS: Acetaminophen/Codeine 30-300mg Tablet PO PRN (07:27)
[2022-02-16] MEDS: Citalopram 20 MG TAB PO SCH (07:29)
[2022-02-16] MEDS: Amlodipine 10 MG TAB PO SCH (07:29)
[2022-02-16] MEDS: Aspirin 325 MG TAB PO SCH (07:29)
[2022-02-16] MEDS: Senokot 8.6 MG TAB PO SCH (07:29)
[2022-02-16] MEDS: Famotidine 20 MG TAB PO SCH ×2 (07:29→20:30)
[2022-02-16] MEDS: Polyethylene Glycol 3350 17 GM Packet PO SCH (07:30)
[2022-02-16] MEDS: Insulin Glargine 30 UNITS/0.3 ML VIAL SC SCH ×2 (09:48→20:30)
[2022-02-16] MEDS: HumaLOG 300 UNITS/3 ML VIAL SC PRN (17:07)
[2022-02-16] MEDS ORDERED: Clopidogrel Bisulfate 75 MG TAB PO SCH (17:15)
[2022-02-16] MEDS: rOPINIRole HCl 1 MG TAB PO SCH (20:30)
[2022-02-16] MEDS: Atorvastatin Calcium 40 MG TAB PO SCH (20:30)
[2022-02-17] MEDS: Acetaminophen 325 MG TAB PO PRN (03:19)
[2022-02-17 04:44] LABS: Phosphorus 3.4 mg/dL (2.3-4.7)
[2022-02-17 04:48] LABS: Anion Gap 11 mmol/L (10-20); BUN (Urea Nitrogen) 12 mg/dL (8.4-25.7); Calc. Creatinine Clearance 156 mL/min (70-130); Calcium 8.7 mg/dL (7.8-10.44); Carbon Dioxide 25 mmol/L (23-31); Chloride 103 mmol/L (98-107); Estimated GFR 102; Glucose 79 mg/dL (80-115); Potassium 3.4 mmol/L (3.5-5.1); Sodium 136 mmol/L (136-145)
[2022-02-17] MEDS: Acetaminophen/Codeine 30-300mg Tablet PO PRN ×3 (06:33→23:08)
[2022-02-17] MEDS ORDERED: Potassium Chloride 20 MEQ TAB PO SCH (08:15)
[2022-02-17] MEDS: Amlodipine 10 MG TAB PO SCH (08:51)
[2022-02-17] MEDS: Aspirin 325 MG TAB PO SCH (08:51)
[2022-02-17] MEDS: Senokot 8.6 MG TAB PO SCH (08:52)
[2022-02-17] MEDS: Citalopram 20 MG TAB PO SCH (08:52)
[2022-02-17] MEDS: Insulin Glargine 30 UNITS/0.3 ML VIAL SC SCH (08:52)
[2022-02-17] MEDS: Polyethylene Glycol 3350 17 GM Packet PO SCH (08:52)
[2022-02-17] MEDS: Famotidine 20 MG TAB PO SCH ×2 (08:52→21:18)
[2022-02-17] MEDS: Clopidogrel Bisulfate 75 MG TAB PO SCH (08:52)
[2022-02-17] MEDS ORDERED: Communication Order-Pharmacy FS PRN (10:00)
[2022-02-17] MEDS: Sodium Chloride 0.9% 1,000 ML IV SCH ×2 (10:57→21:18)
[2022-02-17] MEDS: HumaLOG 300 UNITS/3 ML VIAL SC PRN (11:02)
[2022-02-17] MEDS: Atorvastatin Calcium 40 MG TAB PO SCH (21:18)
[2022-02-17] MEDS: rOPINIRole HCl 1 MG TAB PO SCH (21:18)
[2022-02-18 05:17] LABS: Anion Gap 10 mmol/L (10-20); BUN (Urea Nitrogen) 13 mg/dL (8.4-25.7); Calc. Creatinine Clearance 130 mL/min (70-130); Calcium 8.6 mg/dL (7.8-10.44); Carbon Dioxide 26 mmol/L (23-31); Chloride 102 mmol/L (98-107); Estimated GFR 95; Glucose 256 mg/dL (80-115); Potassium 4.3 mmol/L (3.5-5.1); Sodium 134 mmol/L (136-145)
[2022-02-18] MEDS: Amlodipine 10 MG TAB PO SCH (05:48)
[2022-02-18] MEDS: Famotidine 20 MG TAB PO SCH ×2 (05:48→20:52)
[2022-02-18] MEDS: Clopidogrel Bisulfate 75 MG TAB PO SCH (05:48)
[2022-02-18] MEDS ORDERED: Sodium Chloride 0.9% 1,000 ML IV SCH ×2 (06:00→08:18)
[2022-02-18] MEDS: Acetaminophen/Codeine 30-300mg Tablet PO PRN ×2 (06:12→12:54)
[2022-02-18] MEDS ORDERED: Heparin 10,000 UNITS/ 10 ML VIAL ONE (06:20)
[2022-02-18] MEDS ORDERED: Nitroglycerin 100MG/250ML BOT 250 ML ONE (06:20)
[2022-02-18] MEDS ORDERED: Lidocaine 1% (PF) 30 ML VIAL ONE (06:20)
[2022-02-18] MEDS: Sodium Chloride 0.9% 1,000 ML IV SCH (06:26)
[2022-02-18] MEDS ORDERED: Midazolam HCl 2 mg/2 ml Vial ONE (07:12)
[2022-02-18] MEDS ORDERED: Fentanyl 100 MCG/2 ML VIAL ONE (07:12)
[2022-02-18] MEDS ORDERED: Bivalirudin 250 MG VIAL ONE (07:38)
[2022-02-18] MEDS ORDERED: Clopidogrel Bisulfate 300 MG TAB ONE (08:14)
[2022-02-18] MEDS ORDERED: Iopamidol 370 76% 100 ML VIAL ONE (09:03)
[2022-02-18] MEDS ORDERED: Acetaminophen/Codeine 30-300mg Tablet ONE (12:53)
[2022-02-18] MEDS: Aspirin 81 mg Enteric Coated Tablet PO SCH (14:53)
[2022-02-18] MEDS: Citalopram 20 MG TAB PO SCH (14:53)
[2022-02-18] MEDS: Senokot 8.6 MG TAB PO SCH (14:54)
[2022-02-18] MEDS: Polyethylene Glycol 3350 17 GM Packet PO SCH (14:54)
[2022-02-18] MEDS ORDERED: Dextrose 5% in Water 1,000 ML IV PRN (17:00)
[2022-02-18] MEDS ORDERED: HumaLOG 300 UNITS/3 ML VIAL SC PRN (17:00)
[2022-02-18] MEDS ORDERED: Dextrose 50% Abboject 50 ML SYRINGE SLOW IVP PRN (17:00)
[2022-02-18] MEDS: HumaLOG 300 UNITS/3 ML VIAL SC PRN (17:54)
[2022-02-18] MEDS: rOPINIRole HCl 1 MG TAB PO SCH (20:52)
[2022-02-18] MEDS: Insulin Glargine 30 UNITS/0.3 ML VIAL SC SCH (20:52)
[2022-02-18] MEDS: Atorvastatin Calcium 40 MG TAB PO SCH (20:52)
[2022-02-19] MEDS: Acetaminophen/Codeine 30-300mg Tablet PO PRN (04:50)
[2022-02-19 05:06] LABS: ALT (SGPT) 9 U/L (8-55); AST (SGOT) 16 U/L (5-34); Albumin 2.8 g/dL (3.4-4.8); Alkaline Phosphatase 60 U/L (40-110); Anion Gap 11 mmol/L (10-20); BUN (Urea Nitrogen) 9 mg/dL (8.4-25.7); Bilirubin, Total 0.2 mg/dL (0.2-1.2); Calc. Creatinine Clearance 137 mL/min (70-130); Calcium 8.5 mg/dL (7.8-10.44); Carbon Dioxide 27 mmol/L (23-31); Chloride 98 mmol/L (98-107); Estimated GFR 98; Globulin 2.9 g/dL (2.4-3.5); Glucose 227 mg/dL (80-115); Potassium 4.2 mmol/L (3.5-5.1); Protein, Total 5.7 g/dL (5.8-8.1); Sodium 132 mmol/L (136-145)
[2022-02-19 05:37] LABS: Band 5 % (5-11); Eosinophils 5 % (0-10); Hemoglobin 11.2 g/dL (14.0-18.0); Lymphocytes 42 % (21-51); MDiff Complete? YES; Mean Corpuscular HGB CONC 32.8 g/dL (32.0-36.0); Mean Corpuscular Hemoglobin 31.1 pg (27.0-31.0); Mean Corpuscular Volume 94.6 fL (78.0-98.0); Mean Platelet Volume 6.8 fL (7.4-10.4); Monocytes 18 % (0-10); Neutrophil 30 % (42-75); Platelet Count 306 thou/uL (130-400); RBC Distribution Width 12.7 % (11.5-14.5); Red Blood Cell (RBC) Count 3.61 mill/uL (4.70-6.10); White Blood Cell (WBC) Count 7.4 thou/uL (4.8-10.8)
[2022-02-19] MEDS: HumaLOG 300 UNITS/3 ML VIAL SC PRN (05:52)
[2022-02-19 07:35] VITALS: TEMP 96.9
[2022-02-19] MEDS: Insulin Glargine 30 UNITS/0.3 ML VIAL SC SCH (09:19)
[2022-02-19] MEDS: Famotidine 20 MG TAB PO SCH (09:19)
[2022-02-19] MEDS: Senokot 8.6 MG TAB PO SCH (09:20)
[2022-02-19] MEDS: Aspirin 81 mg Enteric Coated Tablet PO SCH (09:21)
[2022-02-19] MEDS: Amlodipine 10 MG TAB PO SCH (09:21)
[2022-02-19] MEDS: Citalopram 20 MG TAB PO SCH (09:21)
[2022-02-19] MEDS: Clopidogrel Bisulfate 75 MG TAB PO SCH (09:21)
[2022-02-19] MEDS: Polyethylene Glycol 3350 17 GM Packet PO SCH (09:23)
[2022-02-19 13:17] VITALS: BP 128/70
== END 2022-02-19 11:39 | disposition home or self-care (01) | DRG 248 ==
LOC: ERS 00:28 → ERHOLD 02:49 → IMCU/EMU 09:31 → 2NO 02-16 18:47
PROVIDERS: ADMIT Internal Medicine; ATTEND Internal Medicine
PROC: 4A023N7 Measurement of Cardiac Sampling and Pressure, Left Heart, Percutaneous Approach (ICD-10-PCS; 2022-02-15)
PROC: B2111ZZ Fluoroscopy of Multiple Coronary Arteries using Low Osmolar Contrast (ICD-10-PCS; 2022-02-15)
PROC: B2151ZZ Fluoroscopy of Left Heart using Low Osmolar Contrast (ICD-10-PCS; 2022-02-15)
PROC: 02713EZ Dilation of Coronary Artery, Two Arteries with Two Intraluminal Devices, Percutaneous Approach (ICD-10-PCS; principal; 2022-02-18)
DX: I21.4 Non-ST elevation (NSTEMI) myocardial infarction (principal); E11.10 Type 2 diabetes mellitus with ketoacidosis without coma; N17.9 Acute kidney failure, unspecified; E87.1 Hypo-osmolality and hyponatremia; E78.5 Hyperlipidemia, unspecified; I45.10 Unspecified right bundle-branch block; E86.0 Dehydration; E87.5 Hyperkalemia; E11.22 Type 2 diabetes mellitus with diabetic chronic kidney disease; I12.9 Hypertensive chronic kidney disease with stage 1 through stage 4 chronic kidney disease, or unspecified chronic kidney disease; E78.00 Pure hypercholesterolemia, unspecified; F32.A Depression, unspecified; F41.9 Anxiety disorder, unspecified; E83.39 Other disorders of phosphorus metabolism; I25.10 Atherosclerotic heart disease of native coronary artery without angina pectoris; N18.30 Chronic kidney disease, stage 3 unspecified; Z79.82 Long term (current) use of aspirin; Z79.899 Other long term (current) drug therapy; Z79.84 Long term (current) use of oral hypoglycemic drugs; Z79.4 Long term (current) use of insulin; Z98.52 Vasectomy status; Z91.14 Patient's other noncompliance with medication regimen
CPT/HCPCS: 36415; 36416; 70450; 71045; 78452; 80048; 80053; 80061; 82010; 82553; 82805; 83036; 83735; 83930; 84100; 84484; 85025; 85347; 92928; 92929; 93005; 93010; 93017; 93306; 93458; 93798; 94760; 96361; 96365; 96366; 96372; 96376; 99152; 99153; A9500; C1769; C1876; J0583; J1644; J1650; J1815; J2001; J2250; J2720; J2785; J3010; J3030; J3480; J3490; J7050; J7999; Q9967; U0002

== ENCOUNTER 2022-02-20 05:06 | Inpatient (IN) | payer BC ==
[2022-02-20] MEDS ORDERED: Succinylcholine 200 MG/10 ml SYRINGE FS ONE (05:16)
[2022-02-20 05:30] LABS: Hemoglobin 12.5 g/dL (14.0-18.0); Mean Corpuscular HGB CONC 32.6 g/dL (32.0-36.0); Mean Corpuscular Hemoglobin 30.3 pg (27.0-31.0); Mean Corpuscular Volume 93.1 fL (78.0-98.0); Mean Platelet Volume 6.6 fL (7.4-10.4); Platelet Count 456 thou/uL (130-400); RBC Distribution Width 12.9 % (11.5-14.5); Red Blood Cell (RBC) Count 4.13 mill/uL (4.70-6.10); White Blood Cell (WBC) Count 12.1 thou/uL (4.8-10.8)
[2022-02-20] MEDS ORDERED: NOREPINEPHRINE 8 MG/250 ML-D5W 250 ML ONE (05:36)
[2022-02-20] MEDS ORDERED: Lidocaine 1% (PF) 30 ML VIAL ONE (05:39)
[2022-02-20 05:42] LABS: INR-International Normal Ratio 1.1; PTT 29.4 sec (22.9-36.1); Prothrombin Time 14.1 sec (12.0-14.7)
[2022-02-20 05:48] LABS: ALT (SGPT) 13 U/L (8-55); AST (SGOT) 18 U/L (5-34); Albumin 3.2 g/dL (3.4-4.8); Alkaline Phosphatase 68 U/L (40-110); Anion Gap 12 mmol/L (10-20); BUN (Urea Nitrogen) 16 mg/dL (8.4-25.7); Band 5 % (5-11); Bilirubin, Total 0.2 mg/dL (0.2-1.2); Calc. Creatinine Clearance 0 mL/min (70-130); Carbon Dioxide 28 mmol/L (23-31); Chloride 101 mmol/L (98-107); Eosinophils 6 % (0-10); Estimated GFR 68; Globulin 3.2 g/dL (2.4-3.5); Glucose 106 mg/dL (80-115); Lymphocytes 26 % (21-51); MDiff Complete? YES; Monocytes 16 % (0-10); Neutrophil 46 % (42-75); Platelet Morphology Comment Appears Increased; Potassium 4.4 mmol/L (3.5-5.1); Protein, Total 6.4 g/dL (5.8-8.1); Reactive Lymphocytes 1 % (0-10); Sodium 137 mmol/L (136-145)
[2022-02-20] MEDS ORDERED: Propofol 1,000 MG/100 ML VIAL IV ONE (05:48)
[2022-02-20 05:56] LABS: Critical Call Chem Troponin I RESULT DECREASING
[2022-02-20] MEDS ORDERED: EPINEPHrine 1 MG/10 ML Abboject SYRINGE ONE ×2 (06:12→06:25)
[2022-02-20] MEDS ORDERED: Heparin 10,000 UNITS/ 10 ML VIAL ONE ×3 (06:12→07:18)
[2022-02-20] MEDS ORDERED: Sodium Bicarb 50 MEQ/50 ML Abboject 8.4% SYRINGE ONE (06:12)
[2022-02-20 06:18] LABS: CKMB 1.4 ng/mL (0-6.6)
[2022-02-20] MEDS ORDERED: Aggrastat 12.5 MG/250 ML 250 ML ONE (06:23)
[2022-02-20] MEDS ORDERED: EPINEPHrine 1 MG/ML AMP ONE (06:55)
[2022-02-20] MEDS ORDERED: Heparin 25,000 units/D5W 500 ML ONE (06:56)
[2022-02-20] MEDS ORDERED: DOPamine 400 MG/D5W 250 ML 250 ML ONE (07:18)
[2022-02-20] MEDS ORDERED: DOBUTamine 250 MG/20 ML VIAL ONE ×2 (07:32→08:45)
[2022-02-20] MEDS ORDERED: Iopamidol 370 76% 100 ML VIAL ONE (10:00)
== END 2022-02-20 10:17 | disposition expired | DRG 215 ==
LOC: ERS 05:06 → CCL 06:33 → CCU 06:34
PROVIDERS: ADMIT Internal Medicine Cardiovascular Disease; ATTEND Internal Medicine Cardiovascular Disease
PROC: 5A12012 Performance of Cardiac Output, Single, Manual (ICD-10-PCS; principal; 2022-02-20)
PROC: 3E033XZ Introduction of Vasopressor into Peripheral Vein, Percutaneous Approach (ICD-10-PCS; 2022-02-20)
PROC: 0BH17EZ Insertion of Endotracheal Airway into Trachea, Via Natural or Artificial Opening (ICD-10-PCS; 2022-02-20)
PROC: 5A0221D Assistance with Cardiac Output using Impeller Pump, Continuous (ICD-10-PCS; 2022-02-20)
PROC: 4A023N7 Measurement of Cardiac Sampling and Pressure, Left Heart, Percutaneous Approach (ICD-10-PCS; 2022-02-20)
PROC: 02703DZ Dilation of Coronary Artery, One Artery with Intraluminal Device, Percutaneous Approach (ICD-10-PCS; 2022-02-20)
PROC: 02C13ZZ Extirpation of Matter from Coronary Artery, Two Arteries, Percutaneous Approach (ICD-10-PCS; 2022-02-20)
PROC: B2111ZZ Fluoroscopy of Multiple Coronary Arteries using Low Osmolar Contrast (ICD-10-PCS; 2022-02-20)
PROC: B2151ZZ Fluoroscopy of Left Heart using Low Osmolar Contrast (ICD-10-PCS; 2022-02-20)
PROC: 3E033XZ Introduction of Vasopressor into Peripheral Vein, Percutaneous Approach (ICD-10-PCS; 2022-02-20)
PROC: 02HA3RZ Insertion of Short-term External Heart Assist System into Heart, Percutaneous Approach (ICD-10-PCS; 2022-02-20)
DX: I21.19 ST elevation (STEMI) myocardial infarction involving other coronary artery of inferior wall (principal); E11.10 Type 2 diabetes mellitus with ketoacidosis without coma; N18.6 End stage renal disease; I12.0 Hypertensive chronic kidney disease with stage 5 chronic kidney disease or end stage renal disease; R57.0 Cardiogenic shock; I46.2 Cardiac arrest due to underlying cardiac condition; E11.22 Type 2 diabetes mellitus with diabetic chronic kidney disease; E78.00 Pure hypercholesterolemia, unspecified; F41.9 Anxiety disorder, unspecified; F17.220 Nicotine dependence, chewing tobacco, uncomplicated; I25.10 Atherosclerotic heart disease of native coronary artery without angina pectoris; Z98.52 Vasectomy status; Z95.5 Presence of coronary angioplasty implant and graft; Z91.14 Patient's other noncompliance with medication regimen; Z79.899 Other long term (current) drug therapy
CPT/HCPCS: 31500; 33990; 71045; 80053; 82553; 84484; 85025; 85347; 85610; 85730; 92920; 92941; 92950; 93005; 93454; 93458; 96374; 96375; C1725; C1757; C1769; C1876; C1887; J0171; J1250; J1265; J1644; J2001; J2704; J3246; Q9967